=== PATIENT | female | born 1980 | race Caucasian/White ===

== ENCOUNTER 2017-12-08 02:44 | Emergency (ER) | payer BC ==
[2017-12-08] MEDS ORDERED: HYDROCODONE/ACETAMINOPHEN 5-325 MG TABLET PO ONE (03:00)
[2017-12-08] MEDS ORDERED: LIDOCAINE 0.5%/EPINEPHRINE INJ 50 ML VIAL INJ ONE (03:01)
[2017-12-08] MEDS ORDERED: DIPH/PERTUSS(ACELL)/TETANUS VAC/PF 0.5 ML SYR (>=10YO) IM ONE (03:06)
--- NOTE | 2017-12-08 03:08 | ER Document Report ---
ED Animal Bite - General Chief Complaint: Dog Bite Stated Complaint: DOG BITE Time Seen by Provider: 12/08/17 02:56 Notes: Patient is a 37-year-old female presenting to the emergency department complaining of a dog bite. Patient states that her dog who is up-to-date on its immunizations bit her in the right forearm. States the dog then pulled her to the ground and she hit the right side of her face on the tile floor. Patient states she did not lose consciousness and has not vomited since the event. Patient states she is unsure if she is up-to-date on her tetanus vaccine. Past medical history: None Medications: None Allergies: None Patient denies history of anemia, easy bruising or heavy menstrual periods. Patient does admit to occasional EtOH use, cigarette smoking, denies illicit drug use. Patient does admit to drinking EtOH this evening although is conscious alert and oriented x4. TRAVEL OUTSIDE OF THE [place] IN LAST 30 DAYS: No - Related Data Allergies/Adverse Reactions: No Known Allergies Allergy (Unverified 12/08/17 03:07) Past Medical History - General Information source: Patient - Social History Smoking Status: Current Every Day Smoker Lives with: Family Family History: Reviewed & Not Pertinent Review of Systems - Review of Systems Constitutional: No symptoms reported EENT: No symptoms reported Cardiovascular: No symptoms reported Respiratory: No symptoms reported Gastrointestinal: No symptoms reported Genitourinary: No symptoms reported Female Genitourinary: No symptoms reported Musculoskeletal: No symptoms reported Skin: See HPI Hematologic/Lymphatic: See HPI Neurological/Psychological: See HPI Physical Exam - Vital signs Vitals: Temp Pulse Resp BP Pulse Ox 98.1 F 89 20 122/89 H 98 12/08/17 02:46 12/08/17 02:46 12/08/17 02:46 12/08/17 02:46 12/08/17 02:46 - Notes Notes: GENERAL: Alert, interacts well. No acute distress. HEAD: Normocephalic, minor erythema and abrasion noted over right eye. No bony point tenderness. EYES: Pupils equal, round, and reactive to light. Extraocular movements intact. ENT: Oral mucosa moist, tongue midline. NECK: Full range of motion. Supple. Trachea midline. LUNGS: Clear to auscultation bilaterally, no wheezes, rales, or rhonchi. No respiratory distress. HEART: Regular rate and rhythm. No murmur ABDOMEN: Soft, non-tender. Non-distended. Bowel sounds present in all 4 quadrants. EXTREMITIES: Moves all 4 extremities spontaneously. normal radial and dorsalis pedis pulses bilaterally. No cyanosis. Patient is able to abduct and adduct all 5 fingers on right hand. Radial, ulnar, medial nerve intact. total of 12 lacerations to right forearm. 4 of them were suturable and 8 of them were less than 0.5cm (more like puncture wounds). Biggest laceration being 3 cm horizontal right anterior forearm. See procedure note. Positive PMS all 4 extremities. BACK: no cervical, thoracic, lumbar midline tenderness. No saddle anesthesia, normal distal neurovascular exam. NEUROLOGICAL: Alert and oriented x3. Normal speech. cranial nerves II through XII grossly intact. PSYCH: Normal affect, normal mood. SKIN: Warm, dry, normal turgor. Course - Re-evaluation Re-evalutation: 12/08/17 04:11 A total of 8 sutures were placed in the right forearm. There were some smaller, more like puncture wounds that did not need sutures. Forearm was dressed with bacitracin and sterile dressings. Return precautions given. Discussed importance of taking ABX and f/u with PCP in 12-24 hours. - Vital Signs Vital signs: Temp Pulse Resp BP Pulse Ox 98.1 F 89 20 122/89 H 98 12/08/17 02:46 12/08/17 02:46 12/08/17 02:46 12/08/17 02:46 12/08/17 02:46 Procedures - Laceration/Wound Repair arm Wound length (cm): 3 Wound's Depth, Shape: Superficial Laceration pre-procedure: Sterile PPE donned, Sterile drapes applied, Shur- Clens applied Anesthetic type: 1% Lidocaine w/epi Volume Anesthetic (mLs): 5 Wound explored: Clean, No foreign body removed Irrigated w/ Saline (mLs): 1,000 Wound Debrided: Minimal Wound Repaired With: Sutures Suture Size/Type: 4:0, Ethilon Number of Sutures: 3 Post-procedure wound care: Sterile dressing applied Post-procedure NV exam normal: Yes Complications: No Adult Front & Back picture: 1 - total of 12 lacerations in this area. 4 of them were suturable and 8 of them were less than 0.5cm (more like puncture wounds). A total of 8 sutures were placed. forearm Wound length (cm): 1 Wound's Depth, Shape: Superficial, Flap - V shaped Laceration pre-procedure: Sterile PPE donned, Sterile drapes applied, Shur- Clens applied Anesthetic type: 1% Lidocaine w/epi Volume Anesthetic (mLs): 3 Wound explored: Clean, No foreign body removed Irrigated w/ Saline (mLs): 1,000 Wound Debrided: Minimal Wound Repaired With: Sutures Suture Size/Type: 4:0, Ethilon Number of Sutures: 2 Post-procedure wound care: Sterile dressing applied Post-procedure NV exam normal: Yes Complications: No extremity Wound length (cm): 2 Wound's Depth, Shape: Superficial, Linear Laceration pre-procedure: Sterile PPE donned, Sterile drapes applied, Shur- Clens applied Anesthetic type: 1% Lidocaine w/epi Volume Anesthetic (mLs): 3 Wound explored: Clean, No foreign body removed Irrigated w/ Saline (mLs): 1,000 Wound Debrided: Minimal Wound Repaired With: Sutures Suture Size/Type: 4:0, Ethilon Number of Sutures: 2 Post-procedure wound care: Sterile dressing applied Post-procedure NV exam normal: Yes Complications: No right extermity Wound length (cm): 1 Wound's Depth, Shape: Superficial, Flap - V shaped Laceration pre-procedure: Sterile PPE donned, Sterile drapes applied, Shur- Clens applied Anesthetic type: 1% Lidocaine w/epi Volume Anesthetic (mLs): 3 Wound explored: Clean, No foreign body removed Irrigated w/ Saline (mLs): 1,000 Wound Repaired With: Sutures Suture Size/Type: 4:0, Ethilon Number of Sutures: 1 Post-procedure wound care: Sterile dressing applied Post-procedure NV exam normal: Yes Complications: No Discharge - Discharge Clinical Impression: Laceration Dog bite Qualifiers: Encounter type: initial encounter Qualified Code(s): W54.0XXA - Bitten by dog, initial encounter Condition: Stable Disposition: HOME, SELF-CARE Instructions: Animal Bites (OM), Antibiotic Ointment Protection (OM), Laceration Care ([facility]), Tetanus Immunization Given ([facility]) Additional Instructions: As we discussed you have been seen and treated in the emergency department for a dog bite. Some of the lacerations you sustained from the dog bite were able to be closed with loose sutures. You will be treated with oral antibiotics. Please make sure you take the antibiotics as prescribed. Please watch the wound for signs of infection to include but not limited to increased swelling, redness, pain, discharge from wound, systemic fever. You should not get the wound wet for the next 24 hours, after that you may shower like normal, just do not submerge the wound. Take Motrin or Tylenol for pain. The sutures need to be taken out in the next 10-14 days. Please follow up with your primary care or return to the ED. Prescriptions: Amox Tr/Potassium Clavulanate [Augmentin 875-125 Tablet] 1 tab PO BID 10 Days tablet Forms: Return to Work
--- NOTE | 2017-12-08 03:42 | RADIOLOGY REPORT (SQ) ---
EXAM DESCRIPTION: XR FOREARM 2 VIEWS COMPLETED DATE/TME: 12/08/2017 03:00 CLINICAL HISTORY: 37 years, Female, dog bite, swelling COMPARISON: None. NUMBER OF VIEWS: 2 TECHNIQUE: 2 views of the right forearm LIMITATIONS: None. FINDINGS: Soft tissue injury with minimal soft tissue gas along the anterior aspect of the forearm. Focal soft tissue swelling along the posterior/dorsal aspect of the forearm. No acute osseous abnormality. IMPRESSION: Soft tissue injury both anteriorly and posteriorly, as above. No acute osseous abnormality 2010 [facility] [place]- All Rights Reserved
[2017-12-08 05:34] VITALS: BP 110/63
== END 2017-12-08 04:45 | disposition home or self-care (01) ==
LOC: ER 02:44
DX: S51.851A Open bite of right forearm, initial encounter (principal); W54.0XXA Bitten by dog, initial encounter; F17.210 Nicotine dependence, cigarettes, uncomplicated
CPT/HCPCS: 99283; 90471; 73090; 90715; 12002; J3490

== ENCOUNTER 2017-12-13 15:39 | Emergency (ER) | payer BC ==
[2017-12-13 15:46] VITALS: BP 126/73
--- NOTE | 2017-12-13 16:20 | ER Document Report ---
ED General - General Chief Complaint: Wound Recheck Stated Complaint: WOUND RECHECK Time Seen by Provider: 12/13/17 16:09 Mode of Arrival: Ambulatory Information source: Patient Notes: Chief complaint: Wound recheck History of complain:( obtained from----patient) 37 years old female who was bitten by a dog last Sunday that is 2 days ago. Presents today for recheck. Healing well. Still having some pain and wheezing. The wound is in the right forearm and the flexor surface. Onset: As above Duration: Gradual Severity: Moderate as above Quality: As above Context: As Exacerbating factor and relieving factors: REVIEW OF SYSTEMS: CONSTITUTIONAL : Denies fever, chills, or sweats. Denies recent illness. EENT: Denies eye, ear, throat, or mouth pain or symptoms. Denies nasal or sinus congestion or discharge. Denies throat, tongue, or mouth swelling or difficulty swallowing. CARDIOVASCULAR: Denies chest pain. Denies palpitations or racing or irregular heart beat. Denies ankle edema. RESPIRATORY: Denies cough, cold, or chest congestion. Denies shortness of breath, difficulty breathing, or wheezing. GASTROINTESTINAL: Denies distention. Denies nausea, vomiting, or diarrhea. Denies blood in vomitus, stools, or per rectum. Denies black, tarry stools. Denies constipation. GENITOURINARY: Denies difficulty urinating, painful urination, burning, frequency, blood in urine, or discharge. FEMALE GENITOURINARY: Denies vaginal bleeding, heavy or abnormal periods, irregular periods. Denies vaginal discharge or odor. MUSCULOSKELETAL: Denies back or neck pain or stiffness. Denies joint pain or swelling. SKIN: Denies rash, lesions or sores. HEMATOLOGIC : Denies easy bruising or bleeding. LYMPHATIC: Denies swollen, enlarged glands. NEUROLOGICAL: Denies confusion or altered mental status. Denies passing out or loss of consciousness. Denies dizziness or lightheadedness. Denies headache. Denies weakness or paralysis or loss of use of either side. Denies problems with gait or speech. Denies sensory loss, numbness, or tingling. Denies seizures. PSYCHIATRIC: Denies anxiety or stress. Denies depression, suicidal ideation, or homicidal ideation. ALL OTHER SYSTEMS REVIEWED AND NEGATIVE. PHYSICAL EXAMINATION: GENERAL: Well-appearing, well-nourished and in no acute distress. HEAD: Atraumatic, normocephalic. EYES: Pupils equal round and reactive to light, extraocular movements intact, conjunctiva are normal. ENT: Nares patent, oropharynx clear without exudates. Moist mucous membranes. NECK: Normal range of motion, supple without lymphadenopathy LUNGS: Breath sounds clear to auscultation bilaterally and equal. No wheezes rales or rhonchi. HEART: Regular rate and rhythm without murmurs ABDOMEN: Soft, nontender, nondistended abdomen. No guarding, no rebound. No masses appreciated. Examination of genitals-deferred Musculoskeletal: Examination of the right forearm multiple laceration noted due to dog bite there is no significant erythema. 1 of the wound is oozing serosanguineous fluid. Neurovascular function distally within normal limit NEUROLOGICAL: Cranial nerves grossly intact. Normal speech, normal gait. Normal sensory, motor exams PSYCH: Normal mood, normal affect. SKIN: Warm, Dry, normal turgor, no rashes or lesions noted. Dictation was performed using [employer] voice recognition software TRAVEL OUTSIDE OF THE [place] IN LAST 30 DAYS: No - HPI Notes: Dictated - Related Data Allergies/Adverse Reactions: No Known Allergies Allergy (Verified 12/13/17 15:41) Past Medical History - Social History Smoking Status: Current Every Day Smoker Frequency of alcohol use: Rare Drug Abuse: None Lives with: Family Family History: Reviewed & Not Pertinent Renal/ Medical History: Denies: Hx Peritoneal Dialysis Review of Systems - Review of Systems Notes: Dictated Physical Exam - Vital signs Vitals: Temp Pulse Resp BP Pulse Ox 98.6 F 107 H 18 126/73 H 98 12/13/17 15:44 12/13/17 15:44 12/13/17 15:44 12/13/17 15:44 12/13/17 15:44 - Notes Notes: Dictated Course - Vital Signs Vital signs: Temp Pulse Resp BP Pulse Ox 98.6 F 107 H 18 126/73 H 98 12/13/17 15:44 12/13/17 15:44 12/13/17 15:44 12/13/17 15:44 12/13/17 15:44 Discharge - Discharge Clinical Impression: Dog bite Qualifiers: Encounter type: subsequent encounter Qualified Code(s): W54.0XXD - Bitten by dog, subsequent encounter Instructions: Wound Infection ([facility]) Prescriptions: Hydrocodone Bit/Acetaminophen [Hydrocodon-Acetaminophen 5-325] 1 each PO TID # 20 tablet
== END 2017-12-13 16:25 | disposition home or self-care (01) ==
LOC: ER 15:39
DX: S51.811D Laceration without foreign body of right forearm, subsequent encounter (principal); W54.0XXD Bitten by dog, subsequent encounter
CPT/HCPCS: 99283

== ENCOUNTER 2017-12-21 14:41 | Emergency (ER) | payer BC ==
--- NOTE | 2017-12-21 15:02 | ER Document Report ---
HPI - HPI Patient complains to provider of: suture removal Pain Level: Denies Context: Patient presents emergency department for suture removal to her right forearm. Patient reports sutures placed after her dog bit her on 12/08. She reports she has been taking her medication as prescribed. She denies fever. Denies pain at site. No drainage. Reports her arm feels weak after she holds items for a while. [employer] equal bilateral, no weakness noted. Associated Symptoms: None Exacerbated by: Denies Relieved by: Denies Similar symptoms previously: Yes Recently seen / treated by doctor: Yes Past Medical History - General Information source: Patient - Social History Smoking Status: Unknown if Ever Smoked Frequency of alcohol use: None Drug Abuse: None Family History: Reviewed & Not Pertinent Patient has suicidal ideation: No Patient has homicidal ideation: No - Medical History Medical History: Negative Renal/ Medical History: Denies: Hx Peritoneal Dialysis Surgical Hx: Negative Vertical Provider Document - CONSTITUTIONAL Agree With Documented VS: Yes Exam Limitations: No Limitations General Appearance: WD/WN, No Apparent Distress - INFECTION CONTROL TRAVEL OUTSIDE OF THE [place] IN LAST 30 DAYS: No - HEENT HEENT: Atraumatic, Normocephalic - NECK Neck: Supple - RESPIRATORY Respiratory: Breath Sounds Normal, No Respiratory Distress - MUSCULOSKELETAL/EXTREMETIES Musculoskeletal/Extremeties: MAEW, FROM, Non-Tender - NEURO Level of Consciousness: Awake, Alert, Appropriate Motor/Sensory: No Motor Deficit - DERM Integumentary: Warm, Dry Adult Front & Back Diagram: 1 - 7 total suture sites intact, sites benign, no erythema, no warmth no discharge no swelling, some firmness to anterior forearm under suture site without erythema/warmth/swelling Course - Re-evaluation Re-evalutation: 12/21/17 15:06 Patient was instructed to monitor site, instructed on signs and symptoms of infection and instructed to return to the ED for concerns. She verbalized understanding. Dictation of this chart was performed using voice recognition software; therefore, there may be some unintended grammatical errors. Discharge - Discharge Clinical Impression: Visit for suture removal Condition: Stable Disposition: HOME, SELF-CARE Instructions: Suture Removal Additional Instructions: *You have been treated for suture removal *Continue to take your medication as prescribed *Monitor the site for signs of infection such as increasing pain, redness, swelling, warmth *Keep the area clean *Follow up with a primary care provider within one week for recheck *Return to ED for signs of infection, worsening condition, changes, needs, concerns
== END 2017-12-21 15:37 | disposition home or self-care (01) ==
LOC: ER 14:41
DX: S51.851D Open bite of right forearm, subsequent encounter (principal); W54.0XXD Bitten by dog, subsequent encounter